=== PATIENT | male | born 1960 | race Caucasian/White ===

== ENCOUNTER 2019-08-05 16:05 | Emergency (ER) | payer BC ==
[2019-08-05 16:49] VITALS: PULSE 51
[2019-08-05] MEDS ORDERED: Fluorescein 1 MG Ophth Strip EYELF ONE (17:59)
--- NOTE | 2019-08-05 20:48 | EDM.PDOC ---
<Yassine Corado Aj - Last Filed: 08/05/19 21:01> ED HPI GENERAL MEDICAL PROBLEM - General Chief Complaint: Eye Problems Stated Complaint: FB IN EYE Time Seen by Provider: 08/05/19 17:44 - Related Data Allergies Allergy/AdvReac Type Severity Reaction Status Date / Time No Known Allergies Allergy Verified 08/05/19 16:44 Home Meds: Home Meds Amoxicillin/Potassium Clav [Augmentin 875-125 Tablet] 1 each PO BID #10 tablet 12/12/16 [Rx] Pantoprazole [Protonix] 0 tab 12/12/16 [History] Course - Vital Signs Last Recorded V/S: Last Vital Signs Temp 97.7 F 08/05/19 16:44 Pulse 51 L 08/05/19 16:44 Resp 15 08/05/19 16:44 BP Pulse Ox 99 08/05/19 16:44 - Orders/Labs/Meds Meds: Medications Discontinued Medications Generic Name Dose Route Start Last Admin Trade Name Freq PRN Reason Stop Dose Admin Fluorescein Sodium 1 mg 08/05/19 17:59 08/05/19 18:10 Ful-Juanita EYELF 08/05/19 18:00 1 mg ONETIME ONE Administration - Re-Assessments/Exams Free Text/Narrative Re-Assessment/Exam: 08/05/19 21:01 Asked by Ashley De La Torre to remove a foreign body from the patient's left eye under slit lamp. After 2 drops of proparacaine were instilled into the patient's left eye, I examined the patient's left eye under slit lamp, finding a punctate metallic-appearing foreign body at about the 10 o'clock position on the patient' s cornea. The foreign body was removed using a 27-gauge needle, then picked up with a moistened cotton swab. There is a small remaining rust ring, but no visible corneal damage from the procedure. The patient tolerated the procedure well. The patient tells me that he was already prescribed an antibiotic eyedrop, which has provided him with soothing relief. He should continue to instill this until his eye feels all better. I would like him to follow-up with an eye doctor later this coming week, to make sure that the rust ring resolves. Departure - Departure Disposition: Home, Self-Care 01 Clinical Impression: Foreign body of left eye Qualifiers: Encounter type: initial encounter Qualified Code(s): T15.92XA - Foreign body on external eye, part unspecified, left eye, initial encounter - Discharge Information Instructions: Eye Foreign Body, [id number] Referrals: Krish Peralta MD [Primary Care Provider] - Forms: ED Department Discharge Additional Instructions: You have been evaluated in the ED today for the foreign body in the left eye. This was removed successfully, please use antibiotic drops as already prescribed from a previous provider at the walk-in clinic today. Recommend that you follow up with optometry sometime later this week, preferably 72 hours after this visit. Please return to the ED if your symptoms change or worsen <Ashley De La Torre - Last Filed: 08/05/19 21:11> ED HPI GENERAL MEDICAL PROBLEM - General Source of Information: Reports: Patient, RN Notes Reviewed History Limitations: Reports: No Limitations - History of Present Illness INITIAL COMMENTS - FREE TEXT/NARRATIVE: Patient is a 59-year-old male presents to the ED for evaluation of a foreign body in his left eye. Patient states that he was working in a very old house yesterday, and was tearing up some rudy and thought maybe he could've gotten something in his eye as he felt a sensation last night after stopping work. He went to the walk-in clinic this morning and they gave him an antibiotic drop that he complains that there is still something there and that this antibiotic drop will not work as there is still something there. Patient' s eye has been watering since this feeling. His vision exam was within normal limits, he does wear glasses. The notes that there is a foreign body located in the medial portion of his left cornea that is visible to the naked eye. 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 Denies: Vision Change Respiratory: Reports: No Symptoms Cardiovascular: Reports: No Symptoms Endocrine: Reports: No Symptoms GI/Abdominal: Reports: No Symptoms : Reports: No Symptoms Musculoskeletal: Reports: No Symptoms Skin: Reports: No Symptoms Neurological: Reports: No Symptoms Psychiatric: Reports: No Symptoms Hematologic/Lymphatic: Reports: No Symptoms Immunologic: Reports: No Symptoms ED EXAM GENERAL W FULL EYE - Physical Exam Exam: See Below Exam Limited By: No Limitations General Appearance: Alert, WD/WN, No Apparent Distress Eye Exam: Left Eye: Foreign Body (Left medial eye roughly 9 o clock), Bilateral Eye: EOMI, Normal Inspection, PERRL Visual Acuity (R) 20/: 20 Visual Acuity (L) 20/: 25 With Correction: Yes Eyelids: Bilateral: Normal Appearance Conjunctiva & Sclera: Bilateral: Normal Appearance Cornea Exam: Right: Normal Appearance, Left: Foreign Body (Left medial eye roughly 9 o clock) Extraocular Movements: Bilateral: Intact Pupils: Normal Accommodation Pupillary Size: Bilateral: 3 mm Pupillary Reaction: Bilateral: Brisk Anterior Chamber: Bilateral: Normal Appearance Neurological: Alert, Oriented Psychiatric: Normal Affect, Normal Mood Skin Exam: Warm, Dry, Intact, Normal Color, No Rash Course - Re-Assessments/Exams Free Text/Narrative Re-Assessment/Exam: 08/05/19 20:48 Patient presents to the ED for the sensation of a foreign body in his left eye. There was a punctate lesion noted to the left medial cornea, roughly 9 o' clock position. This case was discussed with Dr. Corado and he states that he will try to remove this under slit-lamp with a needle. The patient has antibiotic drops already from the walk in clinic. After the removal of the FB, he should not need any further management in the ED. He will be directed to f/u with optometry on wednesday. Departure - Departure Time of Disposition: 20:59 Condition: Fair - Discharge Information *PRESCRIPTION DRUG MONITORING PROGRAM REVIEWED*: No *COPY OF PRESCRIPTION DRUG MONITORING REPORT IN PATIENT DEANN: No
== END 2019-08-05 21:19 | disposition home or self-care (01) ==
LOC: JD.ED 16:05
DX: T15.92XA Foreign body on external eye, part unspecified, left eye, initial encounter (principal); X58.XXXA Exposure to other specified factors, initial encounter
CPT/HCPCS: 65222; 99283